=== PATIENT | female | born 1965 | race Caucasian/White ===

== ENCOUNTER 2022-01-13 11:57 | Emergency (ER) | payer BC ==
[~2022-01-13] VITALS: Ht 170.2 cm; Wt 75.4 kg
--- NOTE | 2022-01-13 12:07 | NUR ---
BIBRA 89 FOR DIZZINESS AND SYNCOPAL EPISODE FROM SITTING ON A CHAIR TO THE FLOOR AT FLOOR AT THE MD OFFICE. -LOC. PATIENT IS ALERT, ORIENTED X4.
--- NOTE | 2022-01-13 12:10 | NUR ---
SEEN BY DR MASON AT BEDSIDE
--- NOTE | 2022-01-13 12:15 | NUR ---
IV CANNULA INSERTED ON RIGHT AC G20. BLOOD DRAWN AND GIVEN TO ACTIVITIES ASSISTANT.
--- NOTE | 2022-01-13 12:20 | NUR ---
EKG DONE AT BEDSIDE. RESULTS RELAYED TO
[2022-01-13 12:29] LABS: BASOPHILS # (AUTO) 0.1 K/uL (0.0-0.2); BASOPHILS % (AUTO) 1.3 % (0.0-2.0); EOSINOPHILS % (AUTO) 6.1 % (0.0-6.0); HEMATOCRIT 31 % (33-45); HEMOGLOBIN 9.9 g/dL (11.5-14.8); LYMPHOCYTES # (AUTO) 1.4 K/uL (0.8-4.8); LYMPHOCYTES % (AUTO) 16.8 % (20.0-44.0); MEAN CORPUSCULAR HGB CONC 32 g/dl (31.0-36.0); MEAN CORPUSCULAR VOLUME 83 fL (82-100); MONOCYTES # (AUTO) 0.6 K/uL (0.1-1.30); MONOCYTES % (AUTO) 6.6 % (2.0-12.0); NEUTROPHILS # (AUTO) 5.9 K/uL (1.8-8.9); NEUTROPHILS % (AUTO) 69.2 % (43.0-81.0); PLATELET COUNT (AUTO) 268 K/uL (150-450); RED BLOOD CELL COUNT(AUTO) 3.67 MIL/uL (4.0-5.2); WHITE BLOOD COUNT (AUTO) 8.6 K/uL (4.3-11.0)
[2022-01-13] MEDS ORDERED: IV NS 0.9% 1,000 ML BAG IV ONE (12:30)
[2022-01-13] MEDS ORDERED: ONDANSETRON HCL/PF 4 MG/2 ML VIAL IVP ONE (12:30)
--- NOTE | 2022-01-13 12:30 | NUR ---
IV NS 1L BOLUS STARTED
--- NOTE | 2022-01-13 12:35 | NUR ---
PT WHEELED VIA STRETCHER TO CT DEPARTMENT FOR CT SCAN OF THE HEAD WO CONTRAST
[2022-01-13] MEDS ORDERED: ONDANSETRON HCL/PF 4 MG/2 ML VIAL ONE (12:38)
--- NOTE | 2022-01-13 12:45 | NUR ---
ZOFRAN IV WAS ALREADY PREPARED BUT PATIENT REFUSED
[2022-01-13 13:26] LABS: ALANINE AMINOTRANSFERASE 23 U/L (12-78); ALBUMIN 3.1 g/dL (3.4-5.0); ALKALINE PHOSPHATASE 82 U/L (46-116); ASPARTATE AMINOTRANSFERASE 16 U/L (15-37); BILIRUBIN,DIRECT 0.1 mg/dL (0.0-0.2); BILIRUBIN,TOTAL 0.5 mg/dL (0.2-1.0); CALCIUM, SERUM 8.9 mg/dL (8.5-10.1); CARBON DIOXIDE 28 mmol/L (21-32); CHLORIDE 105 mmol/L (98-107); CREATININE 0.8 mg/dL (0.6-1.3); GLUCOSE 143 mg/dL (74-106); POTASSIUM 4.2 mmol/L (3.5-5.1); SODIUM SERUM 140 mmol/L (136-145); TOTAL PROTEIN, SERUM 7.3 g/dL (6.4-8.2); UREA NITROGEN, BLOOD 17 mg/dL (7-18)
--- NOTE | 2022-01-13 13:35 | NUR ---
BS CHECKED 88mg/dl.
--- NOTE | 2022-01-13 14:16 | NUR ---
PATIENT FOR DISCHARGE. MOTHER WILL COME TO PICK PT IN 30-45MINS
[2022-01-13 15:00] VITALS: BP 116/74
== END 2022-01-13 15:17 | disposition home or self-care (01) ==
LOC: ER 12:16
DX: R55 Syncope and collapse (principal); C18.9 Malignant neoplasm of colon, unspecified; D64.9 Anemia, unspecified
CPT/HCPCS: 36415; 70450; 71045; 80048; 80076; 84484; 85025; 85730; 93005; 96360; 99285; J2405; J7030